=== PATIENT | male | born 1950 | race Two or more races ===

== ENCOUNTER 2018-09-07 10:34 | Inpatient (IN) | payer MEDICAID ==
[~2018-09-07] VITALS: Ht 166.4 cm; Wt 57.6 kg
[2018-09-07 14:27] LABS: CHLORIDE 104 mEq/L (98-107)
[2018-09-07 14:28] LABS: HEMATOCRIT. 28.2 % (42.0-52.0); HEMOGLOBIN. 9.3 g/dL (14.0-18.0); MEAN CORPUSCULAR HEMOGLOBIN 30.8 pg (28.0-32.0); MEAN CORPUSCULAR VOLUME 93.5 fL (80.0-94.0); MEAN PLATELET VOLUME 8.3 fl (7.4-10.4); RED BLOOD CELL COUNT 3.02 mill/uL (4.7-6.1); RED CELL DISTRIBUTION WIDTH 19.6 % (11.6-14.6)
[2018-09-07 14:29] LABS: INR 1.2; PARTIAL THROMBOPLASTIN TIME 45.4 sec (23.4-31.0); PROTHROMBIN TIME 11.9 sec (9.1-11.1)
[2018-09-07 14:31] LABS: ETHANOL BLOOD < 10 mg/dL
[2018-09-07 14:32] LABS: PLATELET 35 x1000/uL (130-400)
[2018-09-07] MEDS ORDERED: OCTREOTIDE 1,000 MCG in SODIUM CHLORIDE 0.9% 100 ML IV STA (14:55)
[2018-09-07] MEDS ORDERED: OCTREOTIDE ACETATE 50 MCG/ML 1ML IV STA (14:55)
[2018-09-07] MEDS ORDERED: PANTOPRAZOLE SODIUM 40 MG/VIAL IV STA (14:55)
[2018-09-07] MEDS ORDERED: DEXTROSE 50% WATER 50ML SYRINGE IV ONE (15:00)
[2018-09-07] MEDS ORDERED: CEFTRIAXONE 1 G PREMIX 50 ML IV ONE (15:00)
[2018-09-07 15:45] LABS: PLATELET ESTIMATE MARKEDLY DECREASED
[2018-09-07 15:51] LABS: TOTAL IRON BINDING CAPACITY 94 ug/dL (250-450)
[2018-09-07] MEDS ORDERED: DEXT 5%/0.45% NACL 1000ML 1,000 ML IV SCH (17:37)
[2018-09-07] MEDS ORDERED: LORAZEPAM 2MG/ML CPJ IV PRN (17:45)
[2018-09-07] MEDS ORDERED: HYDROMORPHONE HCL/PF 2MG/ML CPJ IV PRN (17:45)
[2018-09-07] MEDS ORDERED: DOCUSATE SODIUM 100MG CAPSULE PO PRN (17:45)
[2018-09-07] MEDS ORDERED: IPRATROPIUM/ALBUTEROL 0.5-3(2.5)MG/3ML NEB INH PRN (17:45)
[2018-09-07] MEDS ORDERED: HYDROCODONE/ACETAMINOPHEN 5/325MG TABLET PO PRN (17:45)
[2018-09-07] MEDS ORDERED: MAGNESIUM/ALUMINUM HYDROXIDE/SIMETHICONE 30ML UDC PO PRN (17:45)
[2018-09-07] MEDS ORDERED: GUAIFENESIN 200MG/10ML SUGAR FREE UDC PO PRN (17:45)
[2018-09-07] MEDS ORDERED: DIPHENHYDRAMINE 50MG/ML VIAL IV PRN (17:45)
[2018-09-07] MEDS ORDERED: NA PHOS,M-B/NA PHOS,DI-BA ENEMA 118ML PR PRN (17:45)
[2018-09-07] MEDS ORDERED: CLONIDINE 0.1MG TABLET PO PRN (17:45)
[2018-09-07] MEDS ORDERED: ACETAMINOPHEN 325MG TABLET PO PRN (17:45)
[2018-09-07] MEDS ORDERED: INSULIN LISPRO 100 UNITS/ML SUBCUT SCH (18:20)
[2018-09-07] MEDS ORDERED: DEXTROSE 10% WATER 1,000 ML IV ONE (21:30)
[2018-09-07] MEDS ORDERED: IPRATROPIUM/ALBUTEROL 0.5-3(2.5)MG/3ML NEB HHN PRN (21:30)
[2018-09-07] MEDS ORDERED: DEXTROSE 50% WATER 50ML SYRINGE IV PRN (21:30)
[2018-09-08] VITALS (7 sets, daily range): BP systolic 159–176; BP diastolic 75–91
[2018-09-08 00:36] LABS: HEMATOCRIT 27.5 % (42.0-52.0); HEMOGLOBIN 9.3 g/dL (14.0-18.0); MEAN CORPUSCULAR HEMOGLOBIN 31.4 pg (28.0-32.0); MEAN CORPUSCULAR VOLUME 93.2 fL (80.0-94.0); RED BLOOD CELL COUNT 2.95 mill/uL (4.7-6.1); RED CELL DISTRIBUTION WIDTH 19.8 % (11.6-14.6)
[2018-09-08 00:41] LABS: PLATELET 27 x1000/uL (130-400)
[2018-09-08] MEDS: ONDANSETRON HCL 4MG/2ML INJ IV PRN (03:23)
[2018-09-08 05:32] LABS: HEMATOCRIT. 26.1 % (42.0-52.0); HEMOGLOBIN. 8.8 g/dL (14.0-18.0); MEAN CORPUSCULAR HEMOGLOBIN 31.3 pg (28.0-32.0); MEAN CORPUSCULAR VOLUME 93.3 fL (80.0-94.0); MEAN PLATELET VOLUME 7.4 fl (7.4-10.4)
[2018-09-08 05:42] LABS: CHLORIDE 105 mEq/L (98-107)
[2018-09-08 05:49] LABS: LDL CHOLESTEROL 41 mg/dL (5-100)
[2018-09-08 05:50] LABS: HDL CHOLESTEROL 58 mg/dL (40-59)
[2018-09-08 05:51] LABS: T4 FREE 0.56 ng/dL (0.76-1.46)
[2018-09-08 06:58] LABS: PLATELET 21 x1000/uL (130-400); PLATELET ESTIMATE MARKEDLY DECREASED
[2018-09-08] MEDS: PANTOPRAZOLE SODIUM 40 MG/VIAL IV SCH ×2 (09:00→17:03)
[2018-09-08] MEDS ORDERED: OCTREOTIDE 1,000 MCG in SODIUM CHLORIDE 0.9% 98 ML IV SCH (16:00)
[2018-09-08 16:21] LABS: HEMATOCRIT 24.1 % (42.0-52.0); HEMOGLOBIN 8.2 g/dL (14.0-18.0); MEAN CORPUSCULAR HEMOGLOBIN 31.7 pg (28.0-32.0); MEAN CORPUSCULAR VOLUME 93.1 fL (80.0-94.0); RED BLOOD CELL COUNT 2.59 mill/uL (4.7-6.1); RED CELL DISTRIBUTION WIDTH 19.6 % (11.6-14.6)
[2018-09-08 16:31] LABS: PLATELET 26 x1000/uL (130-400)
[2018-09-08] MEDS ORDERED: DEXTROSE 50% WATER 50ML SYRINGE IV PRN (19:15)
[2018-09-08] MEDS: DEXTROSE 50% WATER 50ML SYRINGE IV PRN (20:47)
[2018-09-08] MEDS: INSULIN LISPRO 100 UNITS/ML SUBCUT SCH (20:48)
[2018-09-08] MEDS: BLOOD SUGAR DIAGNOSTIC STRIP TEST SCH (20:48)
[2018-09-08] MEDS: OCTREOTIDE 1,000 MCG in SODIUM CHLORIDE 0.9% 98 ML IV SCH (22:25)
[2018-09-08 23:26] LABS: HEMATOCRIT 23.6 % (42.0-52.0); HEMOGLOBIN 7.8 g/dL (14.0-18.0); MEAN CORPUSCULAR VOLUME 93.3 fL (80.0-94.0); RED BLOOD CELL COUNT 2.53 mill/uL (4.7-6.1); RED CELL DISTRIBUTION WIDTH 19.6 % (11.6-14.6)
[2018-09-08 23:34] LABS: PLATELET 27 x1000/uL (130-400)
[2018-09-09] VITALS (12 sets, daily range): BP systolic 162–176; BP diastolic 84–96
[2018-09-09 07:30] LABS: HEMATOCRIT. 24.3 % (42.0-52.0); HEMOGLOBIN. 8.1 g/dL (14.0-18.0); MEAN CORPUSCULAR HEMOGLOBIN 31.2 pg (28.0-32.0); MEAN CORPUSCULAR VOLUME 92.9 fL (80.0-94.0); MEAN PLATELET VOLUME 7.9 fl (7.4-10.4); RED BLOOD CELL COUNT 2.61 mill/uL (4.7-6.1); RED CELL DISTRIBUTION WIDTH 20.3 % (11.6-14.6)
[2018-09-09] MEDS: INSULIN LISPRO 100 UNITS/ML SUBCUT SCH ×4 (07:46→20:55)
[2018-09-09] MEDS: BLOOD SUGAR DIAGNOSTIC STRIP TEST SCH ×4 (07:46→20:55)
[2018-09-09] MEDS: PANTOPRAZOLE SODIUM 40 MG/VIAL IV SCH ×2 (09:00→17:55)
[2018-09-09 10:02] LABS: PLATELET ESTIMATE MARKEDLY DECREASED
[2018-09-09 10:05] LABS: PLATELET 32 x1000/uL (130-400)
[2018-09-09] MEDS: OCTREOTIDE 1,000 MCG in SODIUM CHLORIDE 0.9% 98 ML IV SCH (17:00)
[2018-09-09] MEDS: DEXTROSE 50% WATER 50ML SYRINGE IV PRN (18:14)
[2018-09-09] MEDS: NIFEDIPINE XL 60MG TAB PO SCH (18:19)
[2018-09-09 18:39] LABS: HEMATOCRIT 28.7 % (42.0-52.0); HEMOGLOBIN 9.7 g/dL (14.0-18.0)
[2018-09-10] VITALS (10 sets, daily range): BP systolic 101–161; BP diastolic 51–100
[2018-09-10 07:33] LABS: HEMATOCRIT. 27.7 % (42.0-52.0); HEMOGLOBIN. 9.5 g/dL (14.0-18.0); MEAN CORPUSCULAR HEMOGLOBIN 31.4 pg (28.0-32.0); MEAN CORPUSCULAR VOLUME 91.1 fL (80.0-94.0); MEAN PLATELET VOLUME 7.7 fl (7.4-10.4); RED BLOOD CELL COUNT 3.05 mill/uL (4.7-6.1); RED CELL DISTRIBUTION WIDTH 19.1 % (11.6-14.6)
[2018-09-10 07:39] LABS: PLATELET 32 x1000/uL (130-400)
[2018-09-10] MEDS: BLOOD SUGAR DIAGNOSTIC STRIP TEST SCH ×4 (07:57→20:27)
[2018-09-10] MEDS: INSULIN LISPRO 100 UNITS/ML SUBCUT SCH ×4 (08:00→20:27)
[2018-09-10] MEDS: PANTOPRAZOLE SODIUM 40 MG/VIAL IV SCH ×2 (08:56→17:59)
[2018-09-10] MEDS: NIFEDIPINE XL 60MG TAB PO SCH (08:57)
[2018-09-10 10:29] LABS: PLATELET ESTIMATE MARKEDLY DECREASED
[2018-09-10] MEDS ORDERED: MAGNESIUM HYDROXIDE 400MG/5ML 30ML UDC PO PRN (11:00)
[2018-09-10] MEDS: OCTREOTIDE 1,000 MCG in SODIUM CHLORIDE 0.9% 98 ML IV SCH (12:37)
[2018-09-10 16:06] LABS: HEMATOCRIT 27.2 % (42.0-52.0); HEMOGLOBIN 9.3 g/dL (14.0-18.0); MEAN CORPUSCULAR HEMOGLOBIN 31.1 pg (28.0-32.0); MEAN CORPUSCULAR VOLUME 91.2 fL (80.0-94.0); RED BLOOD CELL COUNT 2.98 mill/uL (4.7-6.1); RED CELL DISTRIBUTION WIDTH 19.3 % (11.6-14.6)
[2018-09-10 16:10] LABS: PLATELET 41 x1000/uL (130-400)
[2018-09-11] VITALS (13 sets, daily range): BP systolic 103–184; BP diastolic 58–89
[2018-09-11 06:02] LABS: HEMATOCRIT. 27.3 % (42.0-52.0); HEMOGLOBIN. 9.3 g/dL (14.0-18.0); MEAN CORPUSCULAR HEMOGLOBIN 30.9 pg (28.0-32.0); MEAN PLATELET VOLUME 7.6 fl (7.4-10.4); RED BLOOD CELL COUNT 2.99 mill/uL (4.7-6.1); RED CELL DISTRIBUTION WIDTH 18.7 % (11.6-14.6)
[2018-09-11] MEDS: OCTREOTIDE 1,000 MCG in SODIUM CHLORIDE 0.9% 98 ML IV SCH ×2 (07:30→21:55)
[2018-09-11] MEDS: BLOOD SUGAR DIAGNOSTIC STRIP TEST SCH ×4 (07:52→21:54)
[2018-09-11] MEDS: INSULIN LISPRO 100 UNITS/ML SUBCUT SCH ×4 (07:53→21:00)
[2018-09-11] MEDS: PANTOPRAZOLE SODIUM 40 MG/VIAL IV SCH ×2 (08:25→17:07)
[2018-09-11] MEDS: NIFEDIPINE XL 60MG TAB PO SCH (08:25)
[2018-09-11 08:29] LABS: PLATELET ESTIMATE MARKEDLY DECREASED
[2018-09-11 08:30] LABS: PLATELET 39 x1000/uL (130-400)
[2018-09-11] MEDS: DEXTROSE 50% WATER 50ML SYRINGE IV PRN (11:43)
[2018-09-12] VITALS (24 sets, daily range): BP systolic 127–199; BP diastolic 70–99
[2018-09-12] MEDS: CLONIDINE 0.1MG TABLET PO PRN ×2 (00:57→17:14)
[2018-09-12] MEDS: BLOOD SUGAR DIAGNOSTIC STRIP TEST SCH ×3 (07:26→17:14)
[2018-09-12] MEDS: INSULIN LISPRO 100 UNITS/ML SUBCUT SCH ×3 (07:26→17:14)
[2018-09-12] MEDS: PANTOPRAZOLE SODIUM 40 MG/VIAL IV SCH ×2 (08:49→16:53)
[2018-09-12] MEDS: NIFEDIPINE XL 60MG TAB PO SCH (08:50)
[2018-09-12 09:02] LABS: HEMATOCRIT. 26.8 % (42.0-52.0); HEMOGLOBIN. 9.1 g/dL (14.0-18.0); MEAN CORPUSCULAR HEMOGLOBIN 31.2 pg (28.0-32.0); MEAN CORPUSCULAR VOLUME 91.9 fL (80.0-94.0); MEAN PLATELET VOLUME 7.5 fl (7.4-10.4); RED BLOOD CELL COUNT 2.91 mill/uL (4.7-6.1); RED CELL DISTRIBUTION WIDTH 18.8 % (11.6-14.6)
[2018-09-12 09:09] LABS: PLATELET 32 x1000/uL (130-400)
[2018-09-12] MEDS: OCTREOTIDE 1,000 MCG in SODIUM CHLORIDE 0.9% 98 ML IV SCH (14:48)
[2018-09-13] VITALS (8 sets, daily range): BP systolic 96–142; BP diastolic 50–95
[2018-09-13 03:31] LABS: PLATELET ESTIMATE DECREAS
[2018-09-13 06:07] LABS: HEMATOCRIT. 26.3 % (42.0-52.0); HEMOGLOBIN. 8.8 g/dL (14.0-18.0); MEAN CORPUSCULAR HEMOGLOBIN 30.9 pg (28.0-32.0); MEAN CORPUSCULAR VOLUME 91.8 fL (80.0-94.0); MEAN PLATELET VOLUME 7.1 fl (7.4-10.4); RED BLOOD CELL COUNT 2.86 mill/uL (4.7-6.1); RED CELL DISTRIBUTION WIDTH 18.6 % (11.6-14.6)
[2018-09-13] MEDS: INSULIN LISPRO 100 UNITS/ML SUBCUT SCH ×5 (07:30→21:00)
[2018-09-13] MEDS: BLOOD SUGAR DIAGNOSTIC STRIP TEST SCH ×4 (07:30→21:26)
[2018-09-13] MEDS: NIFEDIPINE XL 60MG TAB PO SCH (08:41)
[2018-09-13] MEDS: PANTOPRAZOLE SODIUM 40 MG/VIAL IV SCH ×2 (08:42→17:46)
[2018-09-13 09:52] LABS: PLATELET 32 x1000/uL (130-400); PLATELET ESTIMATE MARKEDLY DECREASED
[2018-09-13] MEDS: OCTREOTIDE 1,000 MCG in SODIUM CHLORIDE 0.9% 98 ML IV SCH (14:00)
[2018-09-14] VITALS (8 sets, daily range): BP systolic 94–166; BP diastolic 56–81
[2018-09-14 06:54] LABS: HEMATOCRIT. 25.9 % (42.0-52.0); HEMOGLOBIN. 8.9 g/dL (14.0-18.0); MEAN CORPUSCULAR HEMOGLOBIN 31.3 pg (28.0-32.0); MEAN CORPUSCULAR VOLUME 91.4 fL (80.0-94.0); MEAN PLATELET VOLUME 7.3 fl (7.4-10.4); RED BLOOD CELL COUNT 2.83 mill/uL (4.7-6.1); RED CELL DISTRIBUTION WIDTH 18.6 % (11.6-14.6)
[2018-09-14] MEDS: INSULIN LISPRO 100 UNITS/ML SUBCUT SCH ×4 (08:00→20:50)
[2018-09-14 08:03] LABS: PLATELET 33 x1000/uL (130-400)
[2018-09-14] MEDS: BLOOD SUGAR DIAGNOSTIC STRIP TEST SCH ×4 (08:19→20:50)
[2018-09-14] MEDS: DEXTROSE 50% WATER 50ML SYRINGE IV PRN (08:20)
[2018-09-14] MEDS: PANTOPRAZOLE SODIUM 40 MG/VIAL IV SCH ×2 (08:20→18:19)
[2018-09-14] MEDS: NIFEDIPINE XL 60MG TAB PO SCH (08:20)
[2018-09-14] MEDS: OCTREOTIDE 1,000 MCG in SODIUM CHLORIDE 0.9% 98 ML IV SCH (09:19)
[2018-09-14 10:57] LABS: PLATELET ESTIMATE MARKEDLY DECREASED
[2018-09-15 00:25] VITALS: BP 159/73
[2018-09-15 04:00] VITALS: BP 177/82
[2018-09-15] MEDS: CLONIDINE 0.1MG TABLET PO PRN (05:37)
[2018-09-15] MEDS: BLOOD SUGAR DIAGNOSTIC STRIP TEST SCH ×4 (06:26→21:00)
[2018-09-15] MEDS: INSULIN LISPRO 100 UNITS/ML SUBCUT SCH ×4 (06:26→21:00)
[2018-09-15 07:42] LABS: HEMATOCRIT. 24.2 % (42.0-52.0); HEMOGLOBIN. 8.1 g/dL (14.0-18.0); MEAN CORPUSCULAR HEMOGLOBIN 30.6 pg (28.0-32.0); MEAN CORPUSCULAR VOLUME 91.6 fL (80.0-94.0); MEAN PLATELET VOLUME 7.4 fl (7.4-10.4); RED BLOOD CELL COUNT 2.64 mill/uL (4.7-6.1); RED CELL DISTRIBUTION WIDTH 18.5 % (11.6-14.6)
[2018-09-15 08:00] VITALS: BP 160/60
[2018-09-15 08:32] LABS: PLATELET 38 x1000/uL (130-400)
[2018-09-15] MEDS: NIFEDIPINE XL 60MG TAB PO SCH (09:31)
[2018-09-15] MEDS: PANTOPRAZOLE SODIUM 40 MG/VIAL IV SCH ×2 (09:31→18:17)
[2018-09-15 11:40] LABS: PLATELET ESTIMATE MARKEDLY DECREASED
[2018-09-15 12:00] VITALS: BP 161/83
[2018-09-15] MEDS: OCTREOTIDE 1,000 MCG in SODIUM CHLORIDE 0.9% 98 ML IV SCH (15:13)
[2018-09-15 16:00] VITALS: BP 177/80
[2018-09-15] MEDS ORDERED: ACETAMINOPHEN 325MG TABLET PO PRN (17:15)
[2018-09-15 20:00] VITALS: BP 120/58
[2018-09-16] VITALS (7 sets, daily range): BP systolic 92–196; BP diastolic 47–88
[2018-09-16] MEDS: BLOOD SUGAR DIAGNOSTIC STRIP TEST SCH ×4 (06:59→21:00)
[2018-09-16] MEDS: NIFEDIPINE XL 60MG TAB PO SCH (09:00)
[2018-09-16] MEDS: PANTOPRAZOLE SODIUM 40 MG/VIAL IV SCH ×2 (09:25→17:28)
[2018-09-16] MEDS: INSULIN LISPRO 100 UNITS/ML SUBCUT SCH ×3 (12:40→21:00)
[2018-09-17] VITALS: BP 194/91
[2018-09-17 06:25] VITALS: BP 178/85
[2018-09-17 07:07] LABS: HEMATOCRIT. 24.7 % (42.0-52.0); HEMOGLOBIN. 8.4 g/dL (14.0-18.0); MEAN CORPUSCULAR HEMOGLOBIN 30.7 pg (28.0-32.0); MEAN CORPUSCULAR VOLUME 90.7 fL (80.0-94.0); MEAN PLATELET VOLUME 7.3 fl (7.4-10.4); RED BLOOD CELL COUNT 2.73 mill/uL (4.7-6.1); RED CELL DISTRIBUTION WIDTH 18.9 % (11.6-14.6)
[2018-09-17] MEDS: BLOOD SUGAR DIAGNOSTIC STRIP TEST SCH ×4 (07:39→21:07)
[2018-09-17] MEDS: INSULIN LISPRO 100 UNITS/ML SUBCUT SCH ×4 (07:39→21:00)
[2018-09-17] MEDS: PANTOPRAZOLE SODIUM 40 MG/VIAL IV SCH ×2 (07:45→16:42)
[2018-09-17] MEDS: NIFEDIPINE XL 60MG TAB PO SCH ×2 (07:46→13:01)
[2018-09-17 08:00] VITALS: BP 174/87
[2018-09-17 08:16] LABS: PLATELET 35 x1000/uL (130-400)
[2018-09-17 10:43] LABS: PLATELET ESTIMATE MARKEDLY DECREASED
[2018-09-17 12:00] VITALS: BP 161/78
[2018-09-17 16:22] VITALS: BP 147/86
[2018-09-17 20:57] VITALS: BP 177/78
[2018-09-18 00:28] VITALS: BP 156/72
[2018-09-18 04:00] VITALS: BP 130/68
[2018-09-18 06:26] LABS: HEMATOCRIT. 28.1 % (42.0-52.0); HEMOGLOBIN. 9.4 g/dL (14.0-18.0); MEAN CORPUSCULAR HEMOGLOBIN 30.7 pg (28.0-32.0); MEAN CORPUSCULAR VOLUME 91.6 fL (80.0-94.0); MEAN PLATELET VOLUME 7.5 fl (7.4-10.4); RED BLOOD CELL COUNT 3.07 mill/uL (4.7-6.1)
[2018-09-18 06:31] LABS: PLATELET 49 x1000/uL (130-400)
[2018-09-18] MEDS: BLOOD SUGAR DIAGNOSTIC STRIP TEST SCH ×3 (07:10→16:45)
[2018-09-18] MEDS: INSULIN LISPRO 100 UNITS/ML SUBCUT SCH ×3 (07:40→16:45)
[2018-09-18 08:00] VITALS: BP 126/63
[2018-09-18] MEDS: PANTOPRAZOLE SODIUM 40 MG/VIAL IV SCH ×2 (09:25→17:00)
[2018-09-18] MEDS: NIFEDIPINE XL 60MG TAB PO SCH (09:25)
[2018-09-18 11:31] VITALS: BP 126/63
[2018-09-18 12:00] VITALS: BP 125/65
[2018-09-18 16:00] VITALS: BP 93/51
[2018-09-18] MEDS: ONDANSETRON HCL 4MG/2ML INJ IV PRN (18:33)
[2018-09-19 06:24] LABS: PLATELET ESTIMATE MARKEDLY DECREASED
== END 2018-09-18 20:46 | disposition home or self-care (01) | DRG 279 ==
LOC: ER 10:34 → MERGE 15:05 → 5EST 15:05 → ENRESERV 09-08 12:51 → 5EST 09-08 14:33 → 8WST 09-14 17:38
PROVIDERS: ADMIT Internal Medicine; ATTEND Internal Medicine
PROC: 30233R1 Transfusion of Nonautologous Platelets into Peripheral Vein, Percutaneous Approach (ICD-10-PCS; principal; 2018-09-08)
PROC: 5A1D70Z Performance of Urinary Filtration, Intermittent, Less than 6 Hours Per Day (ICD-10-PCS; 2018-09-08)
PROC: 30233N1 Transfusion of Nonautologous Red Blood Cells into Peripheral Vein, Percutaneous Approach (ICD-10-PCS; 2018-09-09)
PROC: 5A1D70Z Performance of Urinary Filtration, Intermittent, Less than 6 Hours Per Day (ICD-10-PCS; 2018-09-11)
PROC: 5A1D70Z Performance of Urinary Filtration, Intermittent, Less than 6 Hours Per Day (ICD-10-PCS; 2018-09-14)
PROC: 5A1D70Z Performance of Urinary Filtration, Intermittent, Less than 6 Hours Per Day (ICD-10-PCS; 2018-09-17)
DX: K72.90 Hepatic failure, unspecified without coma (principal); E43 Unspecified severe protein-calorie malnutrition; G92 Toxic encephalopathy; N17.9 Acute kidney failure, unspecified; D61.818 Other pancytopenia; J90 Pleural effusion, not elsewhere classified; D68.9 Coagulation defect, unspecified; E11.22 Type 2 diabetes mellitus with diabetic chronic kidney disease; K92.2 Gastrointestinal hemorrhage, unspecified; E11.51 Type 2 diabetes mellitus with diabetic peripheral angiopathy without gangrene; I12.0 Hypertensive chronic kidney disease with stage 5 chronic kidney disease or end stage renal disease; E11.649 Type 2 diabetes mellitus with hypoglycemia without coma; N18.6 End stage renal disease; E83.52 Hypercalcemia; E03.9 Hypothyroidism, unspecified; K76.1 Chronic passive congestion of liver; Z51.5 Encounter for palliative care; Z66 Do not resuscitate; E83.51 Hypocalcemia; Z68.20 Body mass index [BMI] 20.0-20.9, adult; Z99.2 Dependence on renal dialysis; Z89.512 Acquired absence of left leg below knee; Z79.84 Long term (current) use of oral hypoglycemic drugs
CPT/HCPCS: 36415; 71045; 80048; 80061; 80320; 82270; 82962; 83540; 83550; 83735; 83880; 84439; 84443; 84484; 85014; 85018; 85027; 85044; 86850; 86900; 86920; 86945; 93005; 96365; 99291; C9113; J0696; J2354; J2405; J7050; J7620; P9016; P9034; G0480

== ENCOUNTER 2018-12-16 13:22 | Emergency (ER) | payer MEDICAID ==
[~2018-12-16] VITALS: Ht 162.6 cm; Wt 55.0 kg
[2018-12-16 14:09] LABS: BASOPHILS % 1.7 % (0.0-2.0); EOSINOPHILS % 3.2 % (0.0-5.0); HEMATOCRIT. 26.3 % (42.0-52.0); HEMOGLOBIN. 8.7 g/dL (14.0-18.0); LYMPHOCYTES % 17.6 % (20.0-50.0); MEAN CORPUSCULAR VOLUME 93.4 fL (80.0-94.0); MEAN PLATELET VOLUME 7.7 fl (7.4-10.4); MONOCYTES % 6.5 % (2.0-8.0); RED BLOOD CELL COUNT 2.82 mill/uL (4.7-6.1); RED CELL DISTRIBUTION WIDTH 22.6 % (11.6-14.6)
[2018-12-16 14:20] LABS: INR 1.3; PARTIAL THROMBOPLASTIN TIME 41.1 sec (23.4-31.0)
[2018-12-16 14:22] LABS: PLATELET 19 x1000/uL (130-400)
[2018-12-16 14:37] LABS: PLATELET ESTIMATE MARKEDLY DECREASED
[2018-12-16 19:10] VITALS: BP 173/89
== END 2018-12-16 19:10 | disposition short-term general hospital (02) ==
LOC: ER 13:22 → CANBEDREQ 22:03
DX: T82.41XA Breakdown (mechanical) of vascular dialysis catheter, initial encounter (principal); D61.818 Other pancytopenia; I12.0 Hypertensive chronic kidney disease with stage 5 chronic kidney disease or end stage renal disease; E11.22 Type 2 diabetes mellitus with diabetic chronic kidney disease; N18.6 End stage renal disease; D64.9 Anemia, unspecified; Z99.2 Dependence on renal dialysis
CPT/HCPCS: 36415; 71045; 80048; 86850; 86900; 93005; 99285; P9034

== ENCOUNTER 2019-01-04 11:44 | Inpatient (IN) | payer MEDICAID ==
[~2019-01-04] VITALS: Ht 162.6 cm; Wt 57.6 kg
[2019-01-04 13:43] LABS: CHLORIDE 107 mEq/L (98-107); HEMATOCRIT. 31.8 % (42.0-52.0); HEMOGLOBIN. 10.5 g/dL (14.0-18.0); MEAN CORPUSCULAR HEMOGLOBIN 30.5 pg (28.0-32.0); MEAN CORPUSCULAR VOLUME 92.6 fL (80.0-94.0); MEAN PLATELET VOLUME 8.4 fl (7.4-10.4); RED BLOOD CELL COUNT 3.43 mill/uL (4.7-6.1); RED CELL DISTRIBUTION WIDTH 20.3 % (11.6-14.6)
[2019-01-04 13:47] LABS: PLATELET 14 x1000/uL (130-400)
[2019-01-04 13:54] LABS: INR 1.3; PROTHROMBIN TIME 13.6 sec (9.6-11.0)
[2019-01-04 15:52] LABS: PLATELET ESTIMATE MARKEDLY DECREASED
[2019-01-04] MEDS ORDERED: DEXTROSE 50% WATER 50ML SYRINGE IV NR ×2 (16:00→16:15)
[2019-01-04] MEDS ORDERED: HYDRALAZINE 20MG/ML VIAL IV NR (18:45)
[2019-01-04 20:43] LABS: HEPATITIS B SURFACE ANTIGEN NEGATIVE
[2019-01-04 21:00] VITALS: BP 161/81
[2019-01-04 21:13] LABS: HEPATITIS A AB IGM NEGATIVE (NEGATIVE)
[2019-01-04] MEDS: INSULIN LISPRO 100 UNITS/ML SUBCUT SCH (22:00)
[2019-01-04] MEDS: DEXT 5%/0.45% NACL 1000ML 1,000 ML IV SCH (22:39)
[2019-01-04] MEDS: LOSARTAN POTASSIUM 100 MG TABLET PO SCH (22:40)
[2019-01-04] MEDS: BLOOD SUGAR DIAGNOSTIC STRIP TEST SCH (22:49)
[2019-01-04] MEDS: HYDRALAZINE HCL 100MG TABLET PO SCH (23:20)
[2019-01-05] VITALS (12 sets, daily range): BP systolic 100–159; BP diastolic 66–86
[2019-01-05 06:27] LABS: CHLORIDE 107 mEq/L (98-107)
[2019-01-05] MEDS: BLOOD SUGAR DIAGNOSTIC STRIP TEST SCH ×4 (07:40→21:21)
[2019-01-05] MEDS: INSULIN LISPRO 100 UNITS/ML SUBCUT SCH ×4 (08:10→21:00)
[2019-01-05] MEDS: HYDRALAZINE HCL 100MG TABLET PO SCH (08:41)
[2019-01-05] MEDS: LOSARTAN POTASSIUM 100 MG TABLET PO SCH (08:43)
[2019-01-05 09:41] LABS: BASOPHILS % 0.9 % (0.0-2.0); EOSINOPHILS % 2.5 % (0.0-5.0); HEMATOCRIT. 29.1 % (42.0-52.0); HEMOGLOBIN. 9.6 g/dL (14.0-18.0); LYMPHOCYTES % 13.9 % (20.0-50.0); MEAN CORPUSCULAR HEMOGLOBIN 30.3 pg (28.0-32.0); MEAN CORPUSCULAR VOLUME 91.7 fL (80.0-94.0); MEAN PLATELET VOLUME 7.8 fl (7.4-10.4); MONOCYTES % 5.4 % (2.0-8.0); NEUTROPHILS % 77.3 % (40.0-76.0); RED BLOOD CELL COUNT 3.18 mill/uL (4.7-6.1)
[2019-01-05 10:11] LABS: PLATELET 23 x1000/uL (130-400)
[2019-01-05] MEDS: DEXT 5%/0.45% NACL 1000ML 1,000 ML IV SCH (21:08)
[2019-01-05] MEDS: DEXTROSE 50% WATER 50ML SYRINGE IV PRN (22:06)
[2019-01-05] MEDS: HYDRALAZINE HCL 50MG TABLET PO SCH (22:16)
[2019-01-06] VITALS (10 sets, daily range): BP systolic 147–182; BP diastolic 77–87
[2019-01-06] MEDS: DEXTROSE 50% WATER 50ML SYRINGE IV PRN ×2 (06:15→21:31)
[2019-01-06] MEDS: BLOOD SUGAR DIAGNOSTIC STRIP TEST SCH ×4 (07:40→21:47)
[2019-01-06 08:02] LABS: HEMATOCRIT. 27.2 % (42.0-52.0); MEAN CORPUSCULAR HEMOGLOBIN 30.3 pg (28.0-32.0); MEAN CORPUSCULAR VOLUME 91.8 fL (80.0-94.0); MEAN PLATELET VOLUME 8.1 fl (7.4-10.4); RED BLOOD CELL COUNT 2.96 mill/uL (4.7-6.1); RED CELL DISTRIBUTION WIDTH 20.3 % (11.6-14.6)
[2019-01-06] MEDS: LOSARTAN POTASSIUM 100 MG TABLET PO SCH (08:45)
[2019-01-06] MEDS: HYDRALAZINE HCL 50MG TABLET PO SCH ×2 (08:45→20:59)
[2019-01-06] MEDS: INSULIN LISPRO 100 UNITS/ML SUBCUT SCH ×4 (08:46→21:00)
[2019-01-06 09:32] LABS: PLATELET ESTIMATE MARKEDLY DECREASED
[2019-01-06 09:33] LABS: PLATELET 18 x1000/uL (130-400)
[2019-01-06] MEDS: ONDANSETRON HCL 4MG/2ML INJ IV PRN (15:12)
[2019-01-06] MEDS ORDERED: HYDROMORPHONE HCL/PF 2MG/ML CPJ IV PRN (16:00)
[2019-01-06] MEDS: PROPRANOLOL HCL 10MG TABLET PO SCH (20:59)
[2019-01-06] MEDS: CLONIDINE 0.1MG TABLET PO SCH (21:00)
[2019-01-06 21:21] LABS: HEMATOCRIT 25.7 % (42.0-52.0); HEMOGLOBIN 8.9 g/dL (14.0-18.0)
[2019-01-06 21:24] LABS: INR 1.3; PROTHROMBIN TIME 13.4 sec (9.6-11.0)
[2019-01-06 21:28] LABS: TOTAL IRON BINDING CAPACITY 75 ug/dL (250-450)
[2019-01-06 21:59] LABS: VITAMIN B12 SERUM > 2000.0 pg/mL (211-911)
[2019-01-06 22:05] LABS: FERRITIN 672 ng/mL (22-322)
[2019-01-07] VITALS (12 sets, daily range): BP systolic 114–159; BP diastolic 33–84
[2019-01-07 05:40] LABS: HEMATOCRIT. 26.3 % (42.0-52.0); HEMOGLOBIN. 8.8 g/dL (14.0-18.0); MEAN CORPUSCULAR HEMOGLOBIN 30.9 pg (28.0-32.0); MEAN CORPUSCULAR VOLUME 92.4 fL (80.0-94.0); MEAN PLATELET VOLUME 8.1 fl (7.4-10.4); RED BLOOD CELL COUNT 2.85 mill/uL (4.7-6.1); RED CELL DISTRIBUTION WIDTH 20.1 % (11.6-14.6)
[2019-01-07] MEDS: DEXT 5%/0.45% NACL 1000ML 1,000 ML IV SCH ×2 (06:01→19:30)
[2019-01-07] MEDS: CLONIDINE 0.1MG TABLET PO SCH ×3 (06:06→22:03)
[2019-01-07 06:56] LABS: PLATELET 28 x1000/uL (130-400)
[2019-01-07] MEDS: BLOOD SUGAR DIAGNOSTIC STRIP TEST SCH ×4 (07:06→21:00)
[2019-01-07] MEDS: DEXTROSE 50% WATER 50ML SYRINGE IV PRN ×2 (07:06→17:32)
[2019-01-07] MEDS: INSULIN LISPRO 100 UNITS/ML SUBCUT SCH ×4 (08:10→21:00)
[2019-01-07] MEDS: LOSARTAN POTASSIUM 100 MG TABLET PO SCH (09:00)
[2019-01-07] MEDS: HYDRALAZINE HCL 50MG TABLET PO SCH ×2 (09:00→22:01)
[2019-01-07] MEDS: PROPRANOLOL HCL 10MG TABLET PO SCH ×2 (09:00→22:01)
[2019-01-07 09:06] LABS: IMMUNOGLOBULIN A 323 mg/dL (61-437); IMMUNOGLOBULIN G 1273 mg/dL (700-1600); IMMUNOGLOBULIN M 76 mg/dL (20-172)
[2019-01-07 09:44] LABS: PLATELET ESTIMATE MARKEDLY DECREASED
[2019-01-07] MEDS ORDERED: SODIUM BICARBONATE 4% (2.4MEQ) 5ML VIAL IV ONE (14:40)
[2019-01-07] MEDS: ONDANSETRON HCL 4MG/2ML INJ IV PRN (22:01)
[2019-01-08] VITALS (8 sets, daily range): BP systolic 125–152; BP diastolic 41–75
[2019-01-08] MEDS: CLONIDINE 0.1MG TABLET PO SCH ×3 (06:28→22:00)
[2019-01-08 07:26] LABS: HEMATOCRIT. 24.5 % (42.0-52.0); HEMOGLOBIN. 8.1 g/dL (14.0-18.0); MEAN CORPUSCULAR HEMOGLOBIN 30.9 pg (28.0-32.0); MEAN PLATELET VOLUME 8.4 fl (7.4-10.4); RED BLOOD CELL COUNT 2.63 mill/uL (4.7-6.1); RED CELL DISTRIBUTION WIDTH 19.7 % (11.6-14.6)
[2019-01-08] MEDS: BLOOD SUGAR DIAGNOSTIC STRIP TEST SCH ×4 (07:40→21:55)
[2019-01-08] MEDS: INSULIN LISPRO 100 UNITS/ML SUBCUT SCH ×4 (08:10→21:00)
[2019-01-08 08:20] LABS: HIV SCREEN 4G Non Reactive (Non Reactive)
[2019-01-08 08:42] LABS: PLATELET 40 x1000/uL (130-400)
[2019-01-08] MEDS: PROPRANOLOL HCL 10MG TABLET PO SCH ×2 (08:47→21:00)
[2019-01-08] MEDS: HYDRALAZINE HCL 50MG TABLET PO SCH ×2 (08:50→21:55)
[2019-01-08] MEDS: LOSARTAN POTASSIUM 100 MG TABLET PO SCH (08:52)
[2019-01-08 09:33] LABS: PLATELET ESTIMATE MARKEDLY DECREASED
[2019-01-08] MEDS: DEXT 5%/0.45% NACL 1000ML 1,000 ML IV SCH (17:41)
[2019-01-09 00:53] VITALS: BP 127/66
[2019-01-09 04:00] VITALS: BP 141/73
[2019-01-09] MEDS: BLOOD SUGAR DIAGNOSTIC STRIP TEST SCH ×4 (06:44→21:31)
[2019-01-09 06:48] LABS: HEMATOCRIT. 24.3 % (42.0-52.0); HEMOGLOBIN. 8.2 g/dL (14.0-18.0); MEAN CORPUSCULAR HEMOGLOBIN 30.9 pg (28.0-32.0); MEAN CORPUSCULAR VOLUME 92.2 fL (80.0-94.0); MEAN PLATELET VOLUME 8.5 fl (7.4-10.4); RED BLOOD CELL COUNT 2.64 mill/uL (4.7-6.1); RED CELL DISTRIBUTION WIDTH 19.8 % (11.6-14.6)
[2019-01-09] MEDS: CLONIDINE 0.1MG TABLET PO SCH ×3 (06:53→22:59)
[2019-01-09 06:55] LABS: PLATELET 24 x1000/uL (130-400)
[2019-01-09] MEDS: INSULIN LISPRO 100 UNITS/ML SUBCUT SCH ×4 (07:36→21:00)
[2019-01-09 08:00] VITALS: BP 103/49
[2019-01-09] MEDS: LOSARTAN POTASSIUM 100 MG TABLET PO SCH (08:10)
[2019-01-09] MEDS: HYDRALAZINE HCL 50MG TABLET PO SCH ×2 (08:10→20:52)
[2019-01-09] MEDS: PROPRANOLOL HCL 10MG TABLET PO SCH ×2 (08:11→20:52)
[2019-01-09 10:42] LABS: NUCLEATED RED BLOOD CELLS 1 /100 WBC; PLATELET ESTIMATE MARKEDLY DECREASED
[2019-01-09 12:00] VITALS: BP 109/93
[2019-01-09 16:00] VITALS: BP 116/54
[2019-01-09 20:00] VITALS: BP 119/57
[2019-01-09] MEDS: DEXT 5%/0.45% NACL 1000ML 1,000 ML IV SCH (20:54)
[2019-01-10] VITALS: BP 142/45
[2019-01-10 04:00] VITALS: BP 129/56
[2019-01-10 06:20] LABS: HEMATOCRIT. 22.4 % (42.0-52.0); HEMOGLOBIN. 7.6 g/dL (14.0-18.0); MEAN CORPUSCULAR HEMOGLOBIN 31.2 pg (28.0-32.0); MEAN CORPUSCULAR VOLUME 92.1 fL (80.0-94.0); MEAN PLATELET VOLUME 8.2 fl (7.4-10.4); RED BLOOD CELL COUNT 2.43 mill/uL (4.7-6.1); RED CELL DISTRIBUTION WIDTH 19.3 % (11.6-14.6)
[2019-01-10] MEDS: CLONIDINE 0.1MG TABLET PO SCH ×3 (06:36→21:34)
[2019-01-10] MEDS: BLOOD SUGAR DIAGNOSTIC STRIP TEST SCH ×4 (07:40→21:34)
[2019-01-10 07:55] LABS: PLATELET 22 x1000/uL (130-400)
[2019-01-10 08:00] VITALS: BP 148/45
[2019-01-10] MEDS: INSULIN LISPRO 100 UNITS/ML SUBCUT SCH ×4 (08:10→21:00)
[2019-01-10] MEDS: PROPRANOLOL HCL 10MG TABLET PO SCH ×2 (09:48→21:34)
[2019-01-10] MEDS: LOSARTAN POTASSIUM 100 MG TABLET PO SCH (09:49)
[2019-01-10] MEDS: HYDRALAZINE HCL 50MG TABLET PO SCH ×2 (09:49→21:34)
[2019-01-10 12:00] VITALS: BP 129/48
[2019-01-10 13:46] LABS: PLATELET ESTIMATE MARKEDLY DECREASED
[2019-01-10 16:00] VITALS: BP 115/38
[2019-01-10 20:00] VITALS: BP 126/56
[2019-01-10] MEDS: DEXT 5%/0.45% NACL 1000ML 1,000 ML IV SCH (21:33)
[2019-01-10 21:55] LABS: HEMATOCRIT. 22.4 % (42.0-52.0); HEMOGLOBIN. 7.4 g/dL (14.0-18.0); MEAN CORPUSCULAR VOLUME 93.3 fL (80.0-94.0); MEAN PLATELET VOLUME 8.6 fl (7.4-10.4); RED CELL DISTRIBUTION WIDTH 19.7 % (11.6-14.6)
[2019-01-10 22:06] LABS: PLATELET 18 x1000/uL (130-400)
[2019-01-10] MEDS: DEXTROSE 50% WATER 50ML SYRINGE IV PRN (22:09)
[2019-01-10 23:20] LABS: PLATELET ESTIMATE MARKEDLY DECREASED
[2019-01-11] VITALS (13 sets, daily range): BP systolic 121–197; BP diastolic 33–85
[2019-01-11 05:59] LABS: HEMOGLOBIN. 7.1 g/dL (14.0-18.0); MEAN CORPUSCULAR HEMOGLOBIN 31.2 pg (28.0-32.0); MEAN CORPUSCULAR VOLUME 91.7 fL (80.0-94.0); MEAN PLATELET VOLUME 8.2 fl (7.4-10.4); RED BLOOD CELL COUNT 2.29 mill/uL (4.7-6.1); RED CELL DISTRIBUTION WIDTH 19.5 % (11.6-14.6)
[2019-01-11] MEDS: BLOOD SUGAR DIAGNOSTIC STRIP TEST SCH ×4 (06:01→22:03)
[2019-01-11] MEDS: CLONIDINE 0.1MG TABLET PO SCH ×3 (06:01→18:58)
[2019-01-11] MEDS: DEXTROSE 50% WATER 50ML SYRINGE IV PRN (06:18)
[2019-01-11 06:50] LABS: PLATELET 16 x1000/uL (130-400)
[2019-01-11] MEDS: INSULIN LISPRO 100 UNITS/ML SUBCUT SCH (08:10)
[2019-01-11] MEDS: PROPRANOLOL HCL 10MG TABLET PO SCH ×2 (09:00→21:04)
[2019-01-11] MEDS: HYDRALAZINE HCL 50MG TABLET PO SCH ×2 (10:12→21:04)
[2019-01-11] MEDS: LOSARTAN POTASSIUM 100 MG TABLET PO SCH (10:12)
[2019-01-11 13:47] LABS: NUCLEATED RED BLOOD CELLS 1 /100 WBC; PLATELET ESTIMATE MARKEDLY DECREASED
[2019-01-11] MEDS: DEXT 5%/0.45% NACL 1000ML 1,000 ML IV SCH (19:00)
[2019-01-11] MEDS: ACETAMINOPHEN 325MG TABLET PO PRN (21:03)
[2019-01-12] VITALS: BP 168/71
[2019-01-12] MEDS: CLONIDINE 0.1MG TABLET PO SCH ×4 (00:26→22:19)
[2019-01-12 04:00] VITALS: BP 156/73
[2019-01-12] MEDS: BLOOD SUGAR DIAGNOSTIC STRIP TEST SCH ×4 (06:50→21:10)
[2019-01-12 07:25] LABS: HEMATOCRIT. 30.1 % (42.0-52.0); HEMOGLOBIN. 10.1 g/dL (14.0-18.0); MEAN CORPUSCULAR HEMOGLOBIN 30.4 pg (28.0-32.0); MEAN CORPUSCULAR VOLUME 90.7 fL (80.0-94.0); MEAN PLATELET VOLUME 8.8 fl (7.4-10.4); RED BLOOD CELL COUNT 3.31 mill/uL (4.7-6.1); RED CELL DISTRIBUTION WIDTH 19.1 % (11.6-14.6)
[2019-01-12 07:37] LABS: PLATELET 13 x1000/uL (130-400)
[2019-01-12 08:00] VITALS: BP 157/43
[2019-01-12] MEDS: HYDRALAZINE HCL 50MG TABLET PO SCH ×2 (09:00→20:57)
[2019-01-12] MEDS: LOSARTAN POTASSIUM 100 MG TABLET PO SCH (09:00)
[2019-01-12] MEDS: PROPRANOLOL HCL 10MG TABLET PO SCH ×2 (09:00→20:57)
[2019-01-12 12:00] VITALS: BP 157/67
[2019-01-12] MEDS: ACETAMINOPHEN 325MG TABLET PO PRN ×2 (13:05→22:23)
[2019-01-12 16:00] VITALS: BP 121/38
[2019-01-12] MEDS: DEXT 5%/0.45% NACL 1000ML 1,000 ML IV SCH (17:31)
[2019-01-12 17:42] LABS: PLATELET ESTIMATE MARKEDLY DECREASED
[2019-01-12 20:00] VITALS: BP 134/69
[2019-01-13] VITALS: BP 141/55
[2019-01-13] MEDS: CLONIDINE 0.1MG TABLET PO SCH ×2 (05:58→15:36)
[2019-01-13 06:00] VITALS: BP_SYST 125; BP_SYST 141; BP_DIAS 55; BP_DIAS 59
[2019-01-13] MEDS: BLOOD SUGAR DIAGNOSTIC STRIP TEST SCH ×3 (06:32→17:40)
[2019-01-13 07:10] LABS: BASOPHILS % 0.5 % (0.0-2.0); HEMATOCRIT. 25.6 % (42.0-52.0); HEMOGLOBIN. 8.7 g/dL (14.0-18.0); LYMPHOCYTES % 16.1 % (20.0-50.0); MEAN CORPUSCULAR HEMOGLOBIN 30.7 pg (28.0-32.0); MEAN CORPUSCULAR VOLUME 90.3 fL (80.0-94.0); MEAN PLATELET VOLUME 7.9 fl (7.4-10.4); MONOCYTES % 7.4 % (2.0-8.0); RED BLOOD CELL COUNT 2.83 mill/uL (4.7-6.1); RED CELL DISTRIBUTION WIDTH 18.8 % (11.6-14.6)
[2019-01-13 08:00] VITALS: BP 121/61
[2019-01-13 08:02] LABS: PLATELET 13 x1000/uL (130-400)
[2019-01-13] MEDS: PROPRANOLOL HCL 10MG TABLET PO SCH (08:52)
[2019-01-13] MEDS: HYDRALAZINE HCL 50MG TABLET PO SCH (09:06)
[2019-01-13] MEDS: ACETAMINOPHEN 325MG TABLET PO PRN ×2 (09:06→15:36)
[2019-01-13] MEDS: LOSARTAN POTASSIUM 100 MG TABLET PO SCH (09:07)
[2019-01-13 09:47] LABS: PLATELET ESTIMATE MARKEDLY DECREASED
[2019-01-13 12:03] VITALS: BP 161/54
[2019-01-13 13:06] LABS: ANA IFA Negative (.); MITOCHONDRIAL M2 AB <20.0 Units (0.0-20.0)
[2019-01-13 16:00] VITALS: BP 139/68
[2019-01-13] MEDS: DEXT 5%/0.45% NACL 1000ML 1,000 ML IV SCH (18:23)
[2019-01-13] MEDS: ONDANSETRON HCL 4MG/2ML INJ IV PRN (18:55)
[2019-01-13] MEDS ORDERED: EPINEPHRINE 0.1MG/ML (1:10,000) 10ML SYR ONE ×2 (19:00→19:17)
[2019-01-13] MEDS ORDERED: SODIUM BICARBONATE 8.4% 10MEQ/10ML SYR IV ONE (19:00)
[2019-01-13] MEDS ORDERED: CALCIUM CHLORIDE 1GM/10ML SYR IV ONE (19:00)
[2019-01-14 04:17] LABS: *ALPHA 2 MACROGLOBULINS QN 85 mg/dL (110-276); *GGT1 116 IU/L (0-65); *HEIGHT 64 in (.); *TRIGLYCERIDES 35 mg/dL (0-149); *WEIGHT 127 LBS (.)
== END 2019-01-13 23:35 | disposition expired | DRG 420 ==
LOC: ER 11:44 → 7WST 16:23 → EDBEDREQ 16:37 → ENRESERV 19:42
PROVIDERS: ADMIT Internal Medicine; ATTEND Internal Medicine
PROC: 5A1D70Z Performance of Urinary Filtration, Intermittent, Less than 6 Hours Per Day (ICD-10-PCS; 2019-01-05)
PROC: 30233N1 Transfusion of Nonautologous Red Blood Cells into Peripheral Vein, Percutaneous Approach (ICD-10-PCS; 2019-01-06)
PROC: 5A1D70Z Performance of Urinary Filtration, Intermittent, Less than 6 Hours Per Day (ICD-10-PCS; 2019-01-06)
PROC: 0W9G3ZZ Drainage of Peritoneal Cavity, Percutaneous Approach (ICD-10-PCS; principal; 2019-01-07)
PROC: 05H533Z Insertion of Infusion Device into Right Subclavian Vein, Percutaneous Approach (ICD-10-PCS; 2019-01-07)
PROC: B546ZZA Ultrasonography of Right Subclavian Vein, Guidance (ICD-10-PCS; 2019-01-07)
PROC: 5A1D70Z Performance of Urinary Filtration, Intermittent, Less than 6 Hours Per Day (ICD-10-PCS; 2019-01-08)
PROC: 30233R1 Transfusion of Nonautologous Platelets into Peripheral Vein, Percutaneous Approach (ICD-10-PCS; 2019-01-11)
PROC: 5A1D70Z Performance of Urinary Filtration, Intermittent, Less than 6 Hours Per Day (ICD-10-PCS; 2019-01-11)
PROC: 5A1D70Z Performance of Urinary Filtration, Intermittent, Less than 6 Hours Per Day (ICD-10-PCS; 2019-01-12)
PROC: 5A1D70Z Performance of Urinary Filtration, Intermittent, Less than 6 Hours Per Day (ICD-10-PCS; 2019-01-13)
DX: E11.649 Type 2 diabetes mellitus with hypoglycemia without coma (principal); E43 Unspecified severe protein-calorie malnutrition; G93.41 Metabolic encephalopathy; D61.818 Other pancytopenia; E11.22 Type 2 diabetes mellitus with diabetic chronic kidney disease; E11.51 Type 2 diabetes mellitus with diabetic peripheral angiopathy without gangrene; R18.8 Other ascites; I12.0 Hypertensive chronic kidney disease with stage 5 chronic kidney disease or end stage renal disease; K72.90 Hepatic failure, unspecified without coma; N18.6 End stage renal disease; I16.0 Hypertensive urgency; D63.1 Anemia in chronic kidney disease; D72.825 Bandemia; K76.0 Fatty (change of) liver, not elsewhere classified; K80.20 Calculus of gallbladder without cholecystitis without obstruction; Z89.512 Acquired absence of left leg below knee; Z89.612 Acquired absence of left leg above knee; Z99.2 Dependence on renal dialysis; Z79.899 Other long term (current) drug therapy; Z68.21 Body mass index [BMI] 21.0-21.9, adult
CPT/HCPCS: 36415; 49083; 71045; 76700; 76705; 76937; 80048; 80076; 82040; 82390; 82525; 82607; 82728; 82746; 82784; 82962; 82977; 83516; 83540; 83550; 83605; 83615; 83880; 84153; 84484; 85014; 85018; 85044; 85049; 85384; 86256; 86334; 86705; 86706; 86708; 86709; 86803; 86850; 86900; 86920; 86945; 87340; 87389; 93005; 93970; 96374; 96375; 97162; 97530; 99285; A6261; C1725; J0360; J1170; J1815; J2405; J3490; J7040; J7050; P9016; P9034; G0103